=== PATIENT | female | born 1960 | race Caucasian/White ===

== ENCOUNTER 2025-09-06 19:44 | Outpatient (REF) | payer OTHER, SELFPAY ==
[2025-09-06 20:38] LABS: TSH (W/Ref FT4) 1.51 uIU/mL (0.36-3.74)
== END 2025-09-06 19:45 | disposition home or self-care (01) ==
LOC: NCHCN 19:44
PROVIDERS: Visit Provider Physician Assistant
DX: E06.3 Autoimmune thyroiditis (principal); E56.9 Vitamin deficiency, unspecified
CPT/HCPCS: 82784; 83516; 84443